=== PATIENT | male | born 1980 | race Caucasian/White ===

== ENCOUNTER 2020-08-21 18:09 | Emergency (ER) | payer OTHER ==
[~2020-08-21] VITALS: Ht 185.4 cm; Wt 113.4 kg
== END 2020-08-21 19:27 | disposition home or self-care (01) ==
LOC: ED 18:09
DX: S93.401A Sprain of unspecified ligament of right ankle, initial encounter (principal); X50.1XXA Overexertion from prolonged static or awkward postures, initial encounter
CPT/HCPCS: 73590; 73610; 99283-25